=== PATIENT | male | born 1960 | race Caucasian/White ===

== ENCOUNTER 2024-04-04 11:02 | Emergency (ER) | payer OTHER, SELFPAY ==
--- NOTE | ~2024-04-04 | XR_ITS ---
XR chest 2V Ordering provider: JENNIFER Kingsley History: 63 years Male with . shob, cough . Comparison: None. FINDINGS: MEDIASTINUM: The cardiac silhouette is not enlarged. Postoperative changes in the sternum. LUNGS: No pneumothorax. Pleural-based masses seen in the left apical area measuring 7.1 x 2.6 cm. Opa cification the left lung base suggestive of atelectasis versus pneumonia with minimal left pleural ef fusion. OTHER: No free air under the diaphragm. Degenerative changes of the spine. IMPRESSION: Left basal atelectasis versus pneumonia with left pleural effusion. Pleural-based mass in the left apical area. CT evaluation advised. Reviewed, dictated and finalized at location A.
[2024-04-04 11:12] VITALS: BP 141/60; PULSE 72; RESP 18; TEMP 37; O2SAT 100
--- NOTE | 2024-04-04 11:37 | ED.SOB ---
HPI - SOB/Dyspnea General Chief Complaint: Shortness of Breath/Dyspnea Stated Complaint: Shortness of Breath Time Seen by Provider: 04/04/24 11:29 Source: patient and RN notes reviewed Mode of arrival: ambulatory Limitations: no limitations History of Present Illness HPI Narrative: Patient presents today complaining of shortness of breath and chest tightness since yesterday. Home health nurse told patient that he had some wheezing. Patient also believes he may have had a fever last night due to some sweats. He has had a productive cough for months. He has been using his albuterol nebulizer treatments at home, last was yesterday. 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 Doctors told him hip will eventually resolve. History of COPD continues to smoke. Related Data Home Medications Medication Instructions Recorded Confirmed [place] Ellipta 04/04/24 albuterol sulfate 2.5 mg/3 mL mg 04/04/24 (0.083 %) solution for nebulization albuterol sulfate 90 mcg/actuation inhalation 04/04/24 aerosol inhaler amiodarone 200 mg tablet mg 04/04/24 aspirin 81 mg tablet,delayed mg 04/04/24 release atorvastatin 40 mg tablet mg 04/04/24 clopidogrel 75 mg tablet mg 04/04/24 dapagliflozin propanediol 10 mg mg 04/04/24 tablet (xi) dapagliflozin propanediol 10 mg mg 04/04/24 tablet (xiga) doxycycline monohydrate 100 mg mg 04/04/24 capsule ferrous sulfate 325 mg (65 mg mg 04/04/24 iron) tablet (FeroSul) furosemide 40 mg tablet mg 04/04/24 gabapentin 300 mg capsule mg 04/04/24 glipizide 10 mg tablet mg 04/04/24 ipratropium bromide 17 inhalation 04/04/24 mcg/actuation HFA aerosol inhaler (Atrovent HFA) lisinopril 10 mg tablet mg 04/04/24 metformin 1,000 mg tablet mg 04/04/24 methocarbamol 500 mg tablet mg 04/04/24 metolazone 10 mg tablet mg 04/04/24 metoprolol tartrate 25 mg tablet mg 04/04/24 mometasone-formoterol HFA 200 inhalation 04/04/24 mcg-5 mcg/actuation aerosol inhaler (Dulera) potassium chloride 20 mEq meq PO 04/04/24 tablet,extended release(part/cryst) roflumilast 500 mcg tablet mcg 04/04/24 sennosides 8.6 mg-docusate sodium PO 04/04/24 50 mg tablet (Stimulant Laxative Plus) spironolactone 25 mg tablet mg 04/04/24 Allergies Allergy/AdvReac Type Severity Reaction Status Date / Time fentanyl AdvReac Hallucinati Verified 04/04/24 11:27 ng oxycodone [From OxyContin] AdvReac Hallucinati Verified 04/04/24 11:27 ng Review of Systems Review of Systems: CONSTITUTIONAL: Denies body aches. + subjective fever, sweats EYES: Denies visual changes, redness, or discharge. ENT: Denies rhinorrhea, congestion, sore throat, or otalgia. CARDIOVASCULAR: Denies chest pain, palpitations, or edema. RESPIRATORY: + cough, shortness of breath, chest tightness GASTROINTESTINAL: Denies abdominal pain, nausea, vomiting, or diarrhea. GENITOURINARY: Denies dysuria or hematuria. SKIN: Denies rash, itching, or wounds. MUSCULOSKELETAL: Denies back pain, joint pain, or myalgia. NEUROLOGIC: Denies headache, numbness, tingling, or weakness. PSYCH: Denies depression or anxiety. [facility] Past Medical History Medical History (Updated 04/04/24 @ 12:08 by Destini Church, [employer], ) COPD (chronic obstructive pulmonary disease) Diabetes Surgical History Surgical History (Updated 04/04/24 @ 11:40 by Destini Church, [facility], ) Hx of CABG Social History Social History (Updated 04/04/24 @ 11:43 by Destini Church, [facility], ) Smoking status: Current every day smoker Tobacco type: cigarettes Comments At time of signature, I have reviewed and agree with nursing past medical, surgical, social and family history unless otherwise noted. Please see nursing chart for further information. There is no relevant family history pertinent to the presenting complaint Exam Narrative: GENERAL: Chronically ill
== END 2024-04-04 12:10 | disposition home or self-care (01) ==
PROVIDERS: Emergency Provider Nurse Practitioner; PCP Family Medicine
DX: J44.1 Chronic obstructive pulmonary disease with (acute) exacerbation (principal); J18.9 Pneumonia, unspecified organism; F17.210 Nicotine dependence, cigarettes, uncomplicated; E11.9 Type 2 diabetes mellitus without complications; Z95.1 Presence of aortocoronary bypass graft
CPT/HCPCS: 71046; 99213; G0463